=== PATIENT | male | born 1990 | race Two or more races ===

== ENCOUNTER 2019-11-08 16:37 | Emergency (ER) | payer MEDICAID ==
[~2019-11-08] VITALS: Ht 180.3 cm; Wt 99.8 kg
--- NOTE | 2019-11-08 16:58 | NUR ---
ED Nurse Note: Pt from home came in due to left foot pain. Pt twisted his left ankle today at 7am. No reports of fall or head injury. Noted swelling of left ankle and ice pack was applied. AAO x4 and ambulatory.
--- NOTE | 2019-11-08 17:13 | Emergency Room Report ---
History of Present Illness General Chief Complaint: Lower Extremity Injury Source: Patient (Kathryn Doyle) Present Illness HPI 29-year-old male presents to the emergency department complaining of 9 out of 10 severity localized pain to the left foot and ankle x2 hours. Patient reports that he was playing and when he jumped he landed on someone else's foot unevenly and rolled his ankle. Patient reports initially he was unable to bear any weight. Patient states he can slightly put his foot on the ground now. He states he has not taken any medications for his pain. Patient reports swelling. He denies paresthesias, or loss of gross motor movement of the affected extremity. He denies having midline neck or back pain. He denies hitting his head or having LOC. (Kathryn Doyle) Allergies: Coded Allergies: No Known Allergies (Unverified , 11/08/19) COVID-19 Screening Contact w/high risk pt: No Recent Travel to affected area: No Experienced COVID-19 symptoms?: No COVID-19 Testing performed SURGICAL TRAINING SPECIALIST: No (Kathryn Doyle) Patient History Past Medical History: see triage record Past Surgical History: none Pertinent Family History: none Reviewed Nursing Documentation: PMH: Agreed; PSxH: Agreed (Kathryn Doyle) Nursing Documentation-PMH Past Medical History: No Stated History (Kathryn Doyle) Review of Systems All Other Systems: negative except mentioned in HPI (Kathryn Doyle) Physical Exam Vital Signs Date Time Temp Pulse Resp B/P (MAP) Pulse Ox O2 Delivery O2 Flow Rate FiO2 11/08/19 16:53 98.2 79 18 145/90 (108) 99 Room Air Sp02 EP Interpretation: reviewed, normal General Appearance: no apparent distress, alert, GCS 15, non-toxic Head: normocephalic, atraumatic Eyes: bilateral eye normal inspection, bilateral eye PERRL ENT: hearing grossly normal, normal voice Neck: full range of motion Respiratory: lungs clear, normal breath sounds, speaking full sentences Cardiovascular #1: regular rate, rhythm, normal capillary refill Musculoskeletal: normal range of motion, tender - LEft proximal foot and ankle , swelling - LEft proximal foot and ankle Neurologic: alert, motor strength/tone normal, oriented x3, sensory intact, responsive, speech normal Psychiatric: judgement/insight normal Skin: normal color (Kathryn Doyle) Medical Decision Making PA Attestation Dr. Michaels Is my supervising Physician whom patient management has been discussed with. (Kathryn Doyle) Diagnostic Impression: Primary Impression: Sprain of foot, left Qualified Codes: S93.602A - Unspecified sprain of left foot, initial encounter Additional Impression: Left ankle sprain Qualified Codes: S93.402A - Sprain of unspecified ligament of left ankle, initial encounter ER Course 29-year-old male presents to the emergency department complaining of 9 out of 10 severity localized pain to the left foot and ankle x2 hours. Patient reports that he was playing and when he jumped he landed on someone else's foot unevenly and rolled his ankle. Patient reports initially he was unable to bear any weight. Patient states he can slightly put his foot on the ground now. He states he has not taken any medications for his pain. Patient reports swelling. He denies paresthesias, or loss of gross motor movement of the affected extremity. He denies having midline neck or back pain. He denies hitting his head or having LOC. Ddx considered but are not limited to fracture, D/L, sprain/strain Vital signs: are WNL, pt. is afebrile H&PE are most consistent with fx vs. sprain ORDERS : Xray Left Foot and Ankle 3 views each. - negative for acute fracture, d/l or soft tissue injury. ED INTERVENTIONS: - Elliott PO -Ice pack applied -Left short leg posterior splint applied by tablet technician. Pt. remains neurovascularly intact. -Patient is provided with crutches and instructed on their use d/w pt. that xrays will be reviewed by radiologist in the morning and if there are any changes to official radiological read patient will be contacted. Patient was given orthopedic follow-up information and instructions. DISCHARGE: At this time pt. is stable for d/c to home. Will provide printed patient care instructions, and any necessary prescriptions. Care plan and follow up instructions have been discussed with the patient prior to discharge. (Kathryn Doyle) Other X-Ray Diagnostic Results Other X-Ray Diagnostic Results #1: X-Ray ordered: Left Foot # of Views/Limited Vs Complete: 3 View Indication: Pain EP Interpretation: Yes PA Xray: Interpretation reviewed, by supervising MD, and agrees with findings. Interpretation: no dislocation, no fractures, nonspecific bowel gas, other - ST swelling noted Impression: Other - ABnormal: ST swelling Electronically Signed by: Kathryn Doyle PA-C Other X-Ray Diagnostic Results #2: X-Ray ordered: Left Ankle # of Views/Limited Vs Complete: 3 View Indication: Pain EP Interpretation: Yes PA Xray: Interpretation reviewed, by supervising MD, and agrees with findings. Interpretation: no dislocation, no soft tissue swelling, no fractures Impression: No acute disease Electronically Signed by: Kathryn Doyle PA-C (Kathryn Doyle) Other X-Ray Diagnostic Results #1: Electronically Signed by: P A documentation of Xray reviewed by me and is accurate, Chris Michaels MD Other X-Ray Diagnostic Results #2: Electronically Signed by: P A documentation of Xray reviewed by me and is accurate, Chris Michaels MD (Chris Michaels MD) Last Vital Signs Date Time Temp Pulse Resp B/P (MAP) Pulse Ox O2 Delivery O2 Flow Rate FiO2 11/08/19 16:53 98.2 79 18 145/90 (108) 99 Room Air (Kathryn Doyle) Disposition: HOME, SELF-CARE Condition: Stable Scripts Ibuprofen* (MOTRIN*) 600 Mg Tablet 600 MG ORAL Q6H PRN for For Pain, #30 TAB 0 Refills Prov: Kathryn Doyle 11/08/19 Hydrocodone Bit/Acetaminophen 5-325* (NORCO 5-325 TABLET*) 1 Each Tablet 1 TAB ORAL Q8HR PRN for FOR PAIN, #9 TAB 0 Refills Prov: Kathryn Doyle 11/08/19 Referrals: Orthopedic Urgent Care Patient Instructions: Foot Sprain, Ankle Sprain Additional Instructions: Take medications as directed. Do not drink alcohol, drive, or operate heavy machinery while taking Elliott as this may cause drowsiness. Follow up with an ROLLER HELPER in 3-5 days, even if your symptoms have resolved. If symptoms persist MRI may be required at the discretion of your PCP or Ortho Specialist. --Please review list of primary care clinics, if you do not already have a primary care provider who can give you an Orthopedic Referral. Return sooner to ED if new symptoms occur, or current symptoms become worse. - Please note that this Emergency Department Report was dictated using [employer] technology software, occasionally this can lead to erroneous entry secondary to interpretation by the dictation equipment. Kathryn Doyle Nov 08, 2019 17:12 Chris Michaels MD Nov 10, 2019 05:56
[2019-11-08] MEDS ORDERED: HYDROcodone/Acetamin 5/325 tab ORAL ONE (17:15)
--- NOTE | 2019-11-08 17:23 | NUR ---
ED Nurse Note: pv design and installation technician at the bed side for left foot xray.
--- NOTE | 2019-11-08 18:35 | NUR ---
Per ERPA a short leg posterior was applied on pts left lower ext. PMS was reassessed with good cap refil, motor, and sensitivity.
[2019-11-08] MEDS ORDERED: NORCO 5-325 TA1 EAC1 ORAL (18:39)
[2019-11-08] MEDS ORDERED: IBUPROFEN600 M1 ORAL (18:39)
[2019-11-08 18:55] VITALS: BP 138/76
--- NOTE | 2019-11-08 18:55 | NUR ---
ER DISCHARGE NOTE: Patient is cleared to be discharged per PA, pt is aox4, on room air, with stable vital signs. pt was given dc and prescription instructions, pt was able to verbalize understanding, pt id band removed. pt is able to ambulate with steady gait. pt took all belongings.
--- NOTE | 2019-11-09 09:54 | Diagnostic Imaging Report ---
Indication: Left foot pain Technique: 3 views left foot Comparison: none Findings: No acute fractures. No dislocations. There is mild hallux valgus. There is minimal hammertoe deformity of the second through fifth digits. There is minimal metatarsus adductus. Impression: No acute process
--- NOTE | 2019-11-09 09:59 | Diagnostic Imaging Report ---
Indication: Ankle pain Technique: 3 views of the left ankle Comparison: none Findings: No acute fractures. No dislocations. There is soft tissue swelling over the lateral malleolus. Impression: No acute bony trauma
== END 2019-11-08 18:55 | disposition home or self-care (01) ==
LOC: EMR 17:05
DX: S93.602A Unspecified sprain of left foot, initial encounter (principal); S93.402A Sprain of unspecified ligament of left ankle, initial encounter; X58.XXXA Exposure to other specified factors, initial encounter; Y92.9 Unspecified place or not applicable
CPT/HCPCS: 29515; 73610; 73630; Z7502; 99284